=== PATIENT | female | born 1985 | race Caucasian/White ===

== ENCOUNTER 2024-12-03 18:02 | Emergency (ER) | payer OTHER, SELFPAY ==
[2024-12-03 18:09] VITALS: BP 132/76; PULSE 76; O2SAT 96
[2024-12-03 18:17] VITALS: BP 96/35; PULSE 80; RESP 16; TEMP 37.1; O2SAT 95; BMI 48.7
--- NOTE | 2024-12-03 18:30 | PC.NURSE ---
Pt arrived to ED from [facility] via [facility] w/o [address], yard worker Avril made aware, US Liliana to call [facility] to have sect [address] faxed to ED
[2024-12-03 19:04] LABS: Appearance Urine Clear; Glucose Urine UA Negative (Negative); PH 7.5 (5.0-9.0); Specific Gravity - Urine 1.010 (1.005-1.025)
[2024-12-03 19:13] LABS: Cannabinoid Screen Urine Not Detected (Not Detect)
--- NOTE | 2024-12-03 19:20 | MHC.EDTECH ---
Called [facility] redirected to voicemail left message to fax section 21
[2024-12-03 19:36] LABS: MANUAL DIFF FLAG NO
[2024-12-03 19:38] LABS: Hematocrit 38.8 % (37.0-47.0); Hemoglobin 12.3 g/dl (12.0-16.0); Imm Gran Abs Auto 0.03 X10*3/uL (0.00-0.03); Imm Gran Pct Auto 0.4 % (0.0-0.4); Lymphocytes Absolute Auto 2.0 X10*3/uL (1.2-4.9); Mean Corpuscular HGB Conc 31.7 g/dl (31.0-35.0); Mean Corpuscular Hemoglobin 28.3 pg (27.0-33.0); Mean Corpuscular Volume 89.4 fL (80.0-98.0); NRBC Abs Auto 0.000 X10*3/uL (0.0-0.012); NRBC Pct Auto 0.0 /100WBC (0.0-0.2); Platelet Count 326 X10*3/uL (160-400); Red Blood Count 4.34 X10*6/uL (4.20-5.50); White Blood Count 7.9 X10*3/uL (4.8-10.8)
[2024-12-03 20:07] LABS: Alanine Aminotransferase 31 U/L (0-31); Albumin Level 3.8 g/dL (3.5-5.0); Alkaline Phosphatase 100 U/L (39-117); Anion Gap 15 (12-20); Aspartate Amino Transferase 25 U/L (5-31); Blood Urea Nitrogen 10 mg/dL (9-16); Calcium 8.8 mg/dL (8.4-10.2); Carbon Dioxide 23 mmol/L (22-29); Chloride 107 mmol/L (96-108); Creatinine Clr Calc Pharmacy 140.1; Estimated Glomerular Filt Rate > 60; Lipase 19 U/L (8-78); Magnesium 2.1 mg/dL (1.6-2.6); Potassium 4.6 mmol/L (3.3-5.1); Sodium 140 mmol/L (135-145); Total Protein 7.3 g/dL (6.5-8.0); Troponin-I High Sensitivity < 2.7 ng/L (<3.5-17.0)
[2024-12-03 20:08] VITALS: BP 102/59; PULSE 73; TEMP 36.6; O2SAT 99
[2024-12-03 20:39] VITALS: PULSE 73
--- NOTE | 2024-12-03 21:14 | ED_ITS ---
HPI - General Adult General Chief complaint: Abdominal Pain Stated complaint: Ab pain x1wk, unable to eat pale, Section [address], [facility] Time Seen by Provider: 12/03/24 20:03 History of Present Illness ED Provider: Murray Powell MD HPI narrative: This is a 39-year-old female who comes from [facility] a local psychiatric inpatient facility complaining of methadone withdrawal. She does have mild generalized abdominal discomfort but she attributes this to withdrawal. She says it has been at least 2 days since she received 190 mg which was her baseline dose. She did receive 1 of these doses at [facility] but it was not continued. She feels deep bone pain and other symptoms like fatigue mild nausea consistent with her previous methadone withdrawal syndrome Related Data Allergies Allergy/AdvReac Type Severity Reaction Status Date / Time haloperidol (From Haldol) Allergy Angioedema Verified 12/03/24 18:22 warfarin (From Coumadin) Allergy Angioedema Verified 12/03/24 18:22 [facility] Social History Social History Alcohol intake: current Alcohol intake frequency: 3 or more drinks per day Smoked in Last 30 Days: Yes Use of substances other than those prescribed or required for medical reasons: Yes Substance Use Type: Amphetamines, Crack/Cocaine, Heroin and Methamphetamine Advance Directives: No Advance Directives Information Provided: No Do you have a plan to hurt others: No Plan Physical Exam ED Vital Signs: Vital Signs - 24 hr 12/03/24 18:17 12/03/24 20:08 12/03/24 22:15 Temperature 98.7 F 97.8 F 98.9 F Pulse Rate 80 73 67 Respiratory Rate 16 18 Blood Pressure 96/35 L 102/59 L 121/65 Pulse Oximetry 95 99 95 Oxygen Delivery Method Room Air Room Air Room Air 12/03/24 22:15 12/03/24 22:22 Temperature 97.9 F Pulse Rate 75 Respiratory Rate Blood Pressure 121/65 111/67 Pulse Oximetry 98 Oxygen Delivery Method Room Air BMI result Body Mass Index 48.7 Medications Administered Discontinued Medications Generic Name Dose Route Start Last Admin Trade Name Freq PRN Reason Stop Dose Admin Acetaminophen 975 mg 12/03/24 21:58 12/03/24 22:15 Acetaminophen 325 Mg Tablet PO 12/03/24 21:59 975 mg ONCE ONE Administration Clonidine HCl 0.2 mg 12/03/24 21:58 12/03/24 22:15 Clonidine Hcl 0.2 Mg Tablet PO 12/03/24 21:59 0.2 mg ONCE ONE Administration Protocol Methadone HCl 70 mg 12/03/24 21:58 12/03/24 22:16 Methadone Hcl 20 Mg/2 Ml Oral.Conc PO 12/03/24 21:59 70 mg ONCE ONE Administration Medical Decision Making Medical Decision Making MDM Narrative: Medical Decision Makin-year-old female comes from [facility] she is there for acute psychiatric hospitalization inpatient level of care she does not want to talk about those issues with me in his only requesting a methadone dosing. She tried to explain along recent history of her methadone maintenance which she reports being interrupted. She told me she was [facility] at [facility] and where she was getting 190 mg and subsequently in another dual diagnosis facility where she continue that. She tells me that she has been at [facility] for several days now and they have not been giving her what she reports as her full 190 mg dosing. She tells me that the doctors there has been unable to confirm previous regular 190 mg dosing. She did complain of abdominal pain but she has no focal abdominal tenderness did not vomit in the ED has no fever and I doubt acute serious intra-abdominal pathology she attributes all of her symptoms to methadone/opioid withdrawal syndrome. Patient has no piloerection she is slightly anxious but not tremulous. Initially wrote 190 mg but pharmacy had concerns about giving this dose so we agreed to dose her with 1 single dose at 70 mg. And he continued efforts to confirm a regular maintenance dose for her should be done by [facility] Preliminary Favored Differential Diagnosis: Opioid withdrawal among additional considered etiologies Testing Interpreted Independently: ?See below for details Radiology or Lab testing Results Reviewed: ?See below for details Consults: ?See below for details Independent Historians/External Chart Reviews: ?See below for details Social Determinants of Health Impacting MDM/Planning: ?See below for details Consult Healthcare Provider Consultation with pharmacy through nursing staff Lab Data 12/03/24 19:31 12/03/24 19:31 Labs: Lab Results 12/03/24 12/03/24 Range/Units 18:50 19:31 WBC 7.9 (4.8-10.8) X10*3/uL RBC 4.34 (4.20-5.50) X10*6/uL Hgb 12.3 (12.0-16.0) g/dl Hct 38.8 (37.0-47.0) % MCV 89.4 (80.0-98.0) fL MCH 28.3 (27.0-33.0) pg MCHC 31.7 (31.0-35.0) g/dl RDW 14.2 (11.0-16.0) % Plt Count 326 (160-400) X10*3/uL MPV 9.5 (9.4-12.3) fL Immature Gran % (Auto) 0.4 (0.0-0.4) % Neut % (Auto) 68.5 (45-73) % Lymph % (Auto) 24.9 (20-40) % [place] % (Auto) 6.1 (2-11) % Eos % (Auto) 0.0 (0-4) % Baso % (Auto) 0.1 (0-2) % Lymph # (Auto) 2.0 (1.2-4.9) X10*3/uL [place] # (Auto) 0.5 (0.1-1.2) X10*3/uL Eos # (Auto) 0.0 (0.0-0.4) X10*3/uL Baso # (Auto) 0.0 (0.0-0.2) X10*3/uL Abs Immat Gran (auto) 0.03 (0.00-0.03) X10*3/uL Absolute Neuts (auto) 5.4 (2.0-8.3) x10*3/uL Absolute Nucleated RBC 0.000 (0.0-0.012) X10*3/uL Nucleated RBC % (auto) 0.0 (0.0-0.2) /100WBC Sodium 140 (135-145) mmol/L Potassium 4.6 (3.3-5.1) mmol/L Chloride 107 (96-108) mmol/L Carbon Dioxide 23 (22-29) mmol/L Anion Gap 15 (12-20) BUN 10 (9-16) mg/dL Creatinine 0.81 (0.5-1.4) mg/dL Estim Creat Clear Calc 140.1 Estimated GFR > 60 Random Glucose 97 (60-115) mg/dL Calcium 8.8 (8.4-10.2) mg/dL Magnesium 2.1 (1.6-2.6) mg/dL Total Bilirubin 0.2 (0.0-1.0) mg/dL Direct Bilirubin < 0.2 (0.0-0.5) mg/dL AST 25 (5-31) U/L ALT 31 (0-31) U/L Alkaline Phosphatase 100 (39-117) U/L Troponin I High Sens < 2.7 (<3.5-17.0) ng/L Total Protein 7.3 (6.5-8.0) g/dL Albumin 3.8 (3.5-5.0) g/dL Lipase 19 (8-78) U/L Urine Color Yellow Urine Appearance Clear Urine pH 7.5 (5.0-9.0) Ur Specific [place] 1.010 (1.005-1.025) Urine Protein Negative (Neg-Trace) mg/dL Urine Glucose (UA) Negative (Negative) mg/dL Urine Ketones Negative (Negative) mg/dL Urine Blood Negative (Negative) Urine Nitrite Negative (Negative) Ur Leukocyte Esterase Negative (Negative) Urine Opiates Screen Not Detected (Not Detect) Ur Buprenorphine Scrn Not Detected (Not Detect) ng/mL Ur Oxycodone Screen Not Detected (Not Detect) ng/mL Urine Methadone Screen Positive H (Not Detect) ng/mL Urine Fentanyl Screen POSITIVE H (Not Detect) Ur Barbiturates Screen Not Detected (Not Detect) Ur Phencyclidine Scrn Not Detected (Not Detect) Ur Amphetamines Screen Not Detected (Not Detect) U Benzodiazepines Scrn Not Detected (Not Detect) Urine Cocaine Screen Not Detected (Not Detect) U Marijuana (THC) Screen Not Detected (Not Detect) Ethyl Alcohol < 10 mg/dL Discharge Plan Discharge Clinical Impression: Withdrawal from opioids Patient Disposition: Home, Self-Care Instructions: Opioid Withdrawal (ED) Additional Instructions: The patient's symptomatology presenting here to the emergency department is suggestive of methadone withdrawal based on her description and clinical presentation. She had no clinical suggestion on examination or other presenting features vital signs of an acute emergent condition. She has had as her description 1 dose of 190 mg that was confirmed at [facility] several days ago but this is not confirmed by prior prescriber and was discontinued. I felt it reasonable to dose the patient with a single dose here 190 mg no other workup or treatment was given she can return back Discharge Date/Time: 12/04/24 01:12 Print Language: Danish
[2024-12-03 22:15] VITALS: BP 121/65; PULSE 67; RESP 18; TEMP 37.2; O2SAT 95
[2024-12-03] MEDS: methADONE HCl 20 MG/2 ML ORAL.CONC 70 MG PO (22:16)
--- NOTE | 2024-12-03 22:19 | PC.NURSE ---
This RN spoke with Elen SANTO at [facility] who stated she would be bringing the section [address] to ED. T/w asked about pt last dose of methadone. Pt had not been dosed since she first got there. T/w called [facility] as pt was last at that facility previously. Shruti SANTO from [facility] comfirmed last dose from facility was 11/22 on day of discharge. Pt received 120mg in am and 70 mg in afternoon. Pt reports getting methadone in the streets. T/w spoke with Clarke from pharmacy after ordered 190mg. Per clarke max dose he recommends is 40-70mg max. made aware and dose changed. Pt medicated per JUN.
[2024-12-03 22:22] VITALS: BP 111/67; PULSE 75; TEMP 36.6; O2SAT 98
--- NOTE | 2024-12-04 00:16 | PC.NURSE ---
discharge/transfer report given to Bree SANTO at [facility].
== END 2024-12-04 01:12 | disposition home or self-care (01) ==
PROVIDERS: Emergency Provider Emergency Medicine
DX: F11.23 Opioid dependence with withdrawal (principal); R10.9 Unspecified abdominal pain; R53.83 Other fatigue
CPT/HCPCS: 36415; 80053; 80307; 81003; 82248; 83690; 83735; 84484; 85025; 99284

== ENCOUNTER 2025-01-09 19:57 | Emergency (ER) | payer OTHER, SELFPAY ==
[2025-01-09 20:04] VITALS: BP 145/98; PULSE 94; RESP 18; TEMP 36.2; O2SAT 99; BMI 52.1
[2025-01-09 21:36] LABS: MANUAL DIFF FLAG NO
[2025-01-09 21:38] LABS: Hematocrit 36.6 % (37.0-47.0); Hemoglobin 12.3 g/dl (12.0-16.0); Imm Gran Abs Auto 0.08 X10*3/uL (0.00-0.03); Imm Gran Pct Auto 0.7 % (0.0-0.4); Lymphocytes Absolute Auto 2.2 X10*3/uL (1.2-4.9); Mean Corpuscular HGB Conc 33.6 g/dl (31.0-35.0); Mean Corpuscular Hemoglobin 28.1 pg (27.0-33.0); Mean Corpuscular Volume 83.8 fL (80.0-98.0); NRBC Abs Auto 0.000 X10*3/uL (0.0-0.012); NRBC Pct Auto 0.0 /100WBC (0.0-0.2); Platelet Count 333 X10*3/uL (160-400); Red Blood Count 4.37 X10*6/uL (4.20-5.50); White Blood Count 10.7 X10*3/uL (4.8-10.8)
[2025-01-09 21:48] LABS: Cannabinoid Screen Urine Not Detected (Not Detect)
[2025-01-09 21:53] LABS: Alanine Aminotransferase 41 U/L (0-31); Albumin Level 4.3 g/dL (3.5-5.0); Alkaline Phosphatase 97 U/L (39-117); Anion Gap 16 (12-20); Aspartate Amino Transferase 45 U/L (5-31); Blood Urea Nitrogen 16 mg/dL (9-16); Calcium 9.2 mg/dL (8.4-10.2); Carbon Dioxide 24 mmol/L (22-29); Chloride 103 mmol/L (96-108); Creatinine Clr Calc Pharmacy 149.9; Estimated Glomerular Filt Rate > 60; Potassium 3.8 mmol/L (3.3-5.1); Sodium 139 mmol/L (135-145); Total Protein 8.0 g/dL (6.5-8.0)
--- NOTE | 2025-01-09 22:05 | ED.PSYCH ---
HPI - Psych General Chief Complaint: Psychiatric Symptoms Stated Complaint: Marijuana no SI/HI auditory & visual Hallucination Time Seen by Provider: 01/09/25 21:13 Source: patient, EMS, RN notes reviewed and old records reviewed Mode of arrival: EMS Limitations: altered mental status History of Present Illness ED Provider: Dr. Edie Nobles HPI Narrative: 39-year-old female with a history of schizophrenia presenting with visual and auditory hallucinations, acute psychosis. EMS reports patient was found rolling around and lying on the ground outside of the library. Patient reports having smoked marijuana today. She denies other illicit substance use in the last 24 hours but is being very evasive during my questioning. Reports occasional cocaine use but denies other illicit substance and alcohol use. Denies suicidal ideation. Admits to homicidal ideations towards myself and ?everyone else?. States I can not listen to her heart or lungs because ?I do not have a heart, I ate that a long time ago?. Unable to obtain further information at this point. Related Data Home Medications ?Medication ?Instructions ?Recorded ?Confirmed methadone 10 mg/mL oral concentrate 40 mg PO DAILY 01/10/25 01/10/25 olanzapine 10 mg PO BID 01/10/25 01/10/25 pantoprazole 40 mg PO DAILY 01/10/25 01/10/25 Allergies Allergy/AdvReac Type Severity Reaction Status Date / Time chlorpromazine (From Allergy Severe Angioedema Verified 01/09/25 20:47 Thorazine) haloperidol (From Haldol) Allergy Severe Angioedema Verified 01/09/25 20:47 warfarin (From Coumadin) Allergy Severe Angioedema Verified 01/09/25 20:47 Review of Systems Review of Systems: Yes Unobtainable due to mental status PMFSH Social History Social History Alcohol intake: current Alcohol intake frequency: 3 or more drinks per day Substance Use Type: Amphetamines, Crack/Cocaine, Heroin and Methamphetamine Advance Directives: No Advance Directives Information Provided: No Do you have a plan to hurt others: No Plan Patient : No Physical Exam Exam: Exam: GENERAL: Anxious, agitated, responds to internal stimuli. SKIN: Normal skin color for ethnicity, warm, dry, no rashes noted. HEENT: Normocephalic, atraumatic, no stridor, EOMI. NECK: Full ROM. CHEST: Heart regular rate and rhythm, symmetric chest rise and fall. PULMONARY: No labored breathing. MUSCULOSKELETAL: Normal tone, full range of motion, no deformities, no peripheral edema. NEURO: Alert and oriented x3, no focal neurologic deficits. PSYCHIATRIC: Flat affect, tangential speech, poor eye contact, homicidal, responding to internal stimuli and uncooperative. Vital Signs: Vital Signs: Last Vital Signs Temp 98.3 F 01/10/25 15:33 Pulse 76 01/10/25 15:33 Resp 18 01/10/25 15:33 BP 119/74 01/10/25 15:33 Pulse Ox 99 01/10/25 06:26 O2 Del Method Room Air 01/09/25 20:04 BMI result Body Mass Index 52.1 Course Reevaluation(s) Reevaluation #1: 7:53 AM 01/10/2025 (Dr. Hector Moreno) Patient in physician observation for psychiatric evaluation.? No acute events reported overnight. Medications Administered Discontinued Medications Generic Name Dose Route Start Last Admin Trade Name Henriq PRN Reason Stop Dose Admin Methadone HCl 40 mg 01/10/25 12:45 01/10/25 13:27 Methadone Hcl 20 Mg/2 Ml Oral.Conc PO 40 mg DAILY [facility] Administration Olanzapine 10 mg 01/10/25 13:15 01/10/25 13:15 Olanzapine 10 Mg Tablet PO Not Given BID [facility] Omeprazole 20 mg 01/10/25 13:15 01/10/25 13:11 Omeprazole 20 Mg Capsule. PO 20 mg DAILY@0630 [facility] Administration Medical Decision Making Medical Decision Making [facility] Narrative: Patient presents with psychologic complaints. Differential diagnosis includes suicidal ideations, homicidal ideations, depression, anxiety, mood disorder, decompensated mental illnesses such as schizophrenia or bipolar disorder, medication noncompliance, among many others. Medical clearance protocol was initiated. Differential Diagnosis Differential Diagnoses: The differential diagnosis associated with the presentation includes (As above) Admission/Observation Consideration of admission/observation: Escalation of care including admission/observation considered Consult Healthcare Provider Management of the patient was discussed with: Behavioral Health Provider Lab Data [facility] Lab Attestation statement: I reviewed the patient's lab results. 01/09/25 21:28 01/09/25 21:28 Labs: Lab Results 01/09/25 Range/Units 21:28 WBC 10.7 (4.8-10.8) X10*3/uL RBC 4.37 (4.20-5.50) X10*6/uL Hgb 12.3 (12.0-16.0) g/dl Hct 36.6 L (37.0-47.0) % MCV 83.8 (80.0-98.0) fL MCH 28.1 (27.0-33.0) pg MCHC 33.6 (31.0-35.0) g/dl RDW 14.1 (11.0-16.0) % Plt Count 333 (160-400) X10*3/uL MPV 9.3 L (9.4-12.3) fL Immature Gran % (Auto) 0.7 H (0.0-0.4) % Neut % (Auto) 75.5 H (45-73) % Lymph % (Auto) 20.1 (20-40) % [place] % (Auto) 3.6 (2-11) % Eos % (Auto) 0.0 (0-4) % Baso % (Auto) 0.1 (0-2) % Lymph # (Auto) 2.2 (1.2-4.9) X10*3/uL [place] # (Auto) 0.4 (0.1-1.2) X10*3/uL Eos # (Auto) 0.0 (0.0-0.4) X10*3/uL Baso # (Auto) 0.0 (0.0-0.2) X10*3/uL Abs Immat Gran (auto) 0.08 H (0.00-0.03) X10*3/uL Absolute Neuts (auto) 8.1 (2.0-8.3) x10*3/uL Absolute Nucleated RBC 0.000 (0.0-0.012) X10*3/uL Nucleated RBC % (auto) 0.0 (0.0-0.2) /100WBC Sodium 139 (135-145) mmol/L Potassium 3.8 (3.3-5.1) mmol/L Chloride 103 (96-108) mmol/L Carbon Dioxide 24 (22-29) mmol/L Anion Gap 16 (12-20) BUN 16 (9-16) mg/dL Creatinine 0.79 (0.5-1.4) mg/dL Estim Creat Clear Calc 149.9 Estimated GFR > 60 Random Glucose 115 (60-115) mg/dL Calcium 9.2 (8.4-10.2) mg/dL Total Bilirubin 0.9 (0.0-1.0) mg/dL AST 45 H (5-31) U/L ALT 41 H (0-31) U/L Alkaline Phosphatase 97 (39-117) U/L Total Protein 8.0 (6.5-8.0) g/dL Albumin 4.3 (3.5-5.0) g/dL Urine Color Yellow Urine Appearance Cloudy Urine pH 6.0 (5.0-9.0) Ur Specific [place] 1.025 (1.005-1.025) Urine Protein Negative (Neg-Trace) mg/dL Urine Glucose (UA) Negative (Negative) mg/dL Urine Ketones 40 (Negative) mg/dL Urine Blood Negative (Negative) Urine Nitrite Negative (Negative) Ur Leukocyte Esterase Negative (Negative) Urine RBC 0-2 (0-2) /HPF Urine WBC 0-5 (0-5) /HPF Ur Squamous Epith Cells 3-5 (0-2) /HPF Urine Bacteria None Seen (None Seen) Hyaline Casts 0-2 (0-2) /LPF Urine Opiates Screen POSITIVE H (Not Detect) Ur Buprenorphine Scrn Not Detected (Not Detect) ng/mL Ur Oxycodone Screen Not Detected (Not Detect) ng/mL Urine Methadone Screen Positive H (Not Detect) ng/mL Urine Fentanyl Screen POSITIVE H (Not Detect) Ur Barbiturates Screen Not Detected (Not Detect) Ur Phencyclidine Scrn Not Detected (Not Detect) Ur Amphetamines Screen Not Detected (Not Detect) U Benzodiazepines Scrn Not Detected (Not Detect) Urine Cocaine Screen POSITIVE H (Not Detect) U Marijuana (THC) Screen Not Detected (Not Detect) Ethyl Alcohol < 10 mg/dL Independent Historian Clinical information obtained from an independent historian. History obtained from or confirmed by: EMS External Record Review External record reviewed: Inpatient record Chronic Conditions Patient?s care impacted by: Other (Schizophrenia) Social Determinants Patient?s care significantly limited by Social Determinants of Health including: Inadequate housing, Alcoholism and drug addiction in family and Problems related to primary support group Discharge Plan Discharge Clinical Impression: Acute psychosis, Polysubstance use disorder, Acute paranoia, Cocaine use disorder, Opioid use disorder Patient Disposition: Xfer Psychiatric Hosp Transfer Details: TO: [facility] ACCEPTING Prescriptions: No Action olanzapine 10 mg PO BID pantoprazole 40 mg PO DAILY methadone 10 mg/mL Concentrate 40 mg PO DAILY Interventions: [place]-Suicide Risk Severity Scale Last Done: 01/09/25 20:04 Acute Care Transfer Worksheet (ED) Last Done: 01/10/25 15:33 Discharge Date/Time: 01/10/25 15:34 Print Language: Thai
--- NOTE | 2025-01-10 02:22 | MHC.CARE ---
CARE Team attempted to evaluate patient at 0215. Patient psychotic, making nonsensical statements, engaging in self-dialogue, laughing inappropriately. Patient continued to respond to questions with either a question or she would say I don't know. I don't even know who I am. I already told you that. Oh, I'm Elian Musk. [facility] or today, I don't know. Patient is becoming angry and hostile. She is currently unable to be evaluated. CARE Team will attempt later in the morning.
[2025-01-10 06:26] VITALS: BP 119/74; PULSE 76; RESP 18; TEMP 36.8; O2SAT 99
--- NOTE | 2025-01-10 08:25 | PC.NURSE ---
Assumed care, report received. Pt is currently sleeping, she is brought breakfast, safety is maintained.
--- NOTE | 2025-01-10 09:38 | HE.PHANOTE ---
Re Methadone Pt gets 40mg daily from [facility], last dose given at 0900 on 01/08/25.
[2025-01-10 12:24] LABS: Appearance Urine Cloudy; Glucose Urine UA Negative (Negative); PH 6.0 (5.0-9.0); Specific Gravity - Urine 1.025 (1.005-1.025)
--- NOTE | 2025-01-10 12:41 | ECG_ITS ---
Test Reason : PROLONGED QTC Blood Pressure : */* mmHG Vent. Rate : 57 BPM Atrial Rate : 57 BPM P-R Int : 134 ms QRS Dur : 80 ms QT Int : 464 ms P-R-T Axes : 23 57 43 degrees QTcB Int : 451 ms Sinus bradycardia Otherwise normal ECG No previous ECGs available Referred By: Hector Moreno Electronically Signed By: JULIA LERNER
--- NOTE | 2025-01-10 12:45 | MHC.CARE ---
Patient has been accepted to [facility], we will transfer call for [facility] to you when they are ready for report, Accepting Dr. Virgilio Barrientos, F14.20 Cocaine Use D/o F11.20 Opiate Use D/o, moderate severe F29 Unspecified Psychosis. Ambulance pepper picker here @ 345PM.
[2025-01-10] MEDS: methADONE HCl 20 MG/2 ML ORAL.CONC 40 MG PO (13:27)
[2025-01-10 15:33] VITALS: BP 119/74; PULSE 76; RESP 18; TEMP 36.8
== END 2025-01-10 15:34 ==
PROVIDERS: Emergency Provider Emergency Medicine
DX: F23 Brief psychotic disorder (principal); F22 Delusional disorders; R00.1 Bradycardia, unspecified; F19.90 Other psychoactive substance use, unspecified, uncomplicated; F14.90 Cocaine use, unspecified, uncomplicated; F11.90 Opioid use, unspecified, uncomplicated; Z79.899 Other long term (current) drug therapy
CPT/HCPCS: 36415; 80053; 80307; 81001; 85025; 93005; 99285; S9485

== ENCOUNTER → 2025-01-10 12:41 | Outpatient (BNV) | payer OTHER, SELFPAY | PROVIDERS: Emergency Provider Emergency Medicine; Visit Provider Internal Medicine | DX: R00.1 Bradycardia, unspecified (principal) | CPT/HCPCS: 93010 ==